=== PATIENT | female | born 1985 | race Caucasian/White ===

== ENCOUNTER 2018-06-28 05:30 | Inpatient (IN) | payer OTHER ==
--- NOTE | 2018-06-28 06:23 | HP ---
Admitting History and Physical - Admission Chief Complaint: iol History of Present Illness: 32 y/o at 41 weeks comes for IOL pt of hrhcatre gbs neg hiv neg rpr neg Limitations to Obtaining History: No Limitations - Past Medical History [employer]: No: Alzheimer's, CVA, Dementia, Migraine, Multiple Sclerosis, Peripheral Neuropathy, Parkinson's, Seizure, Syncope, TIA, Vertigo, Other Cardiovascular: No: AFIB, Aneurysm, Aortic Insufficiency, Aortic Stenosis, CAD, CHF, Deep Vein Thrombosis, HTN, Hyperlipdemia, MS, Mitral Insufficiency, Mitral Stenosis, Murmur, Pulmonary Hypertension, Other Pulmonary: No: Asthma, Bronchitis, Cancer, COPD, O2 Dependent, Pneumonia, Previously Intubated, Pulmonary Embolus, Pulmonary Fibrosis, Sleep Apnea, Other Gastrointestinal: No: Ascites, Cancer, Constipation, Crohn's Disease, Diverticulitis, Diverticulosis, Esophageal Varices, Gastritis, GERD, GI Bleed, Hemorrhoids, Hiatal Hernia, Inflamatory Bowel Disease, Irritable Bowel Disease, Pancreatitis, Peptic Ulcer Disease, Ulcerative Colitis, Other Hepatobiliary: No: Cirrhosis, Cholelithiasis, Cholecystitis, Choledocholithiasis , Hepatitis A, Hepatitis B, Hepatitis C, Other Renal/: No: Renal Failure, Renal Inusuff, BPH, Cancer, Hematuria, Hemodialysis , Neurogenic Bladder, Renal Calculi, UTI, Other Reproductive: No: Ectopic , Endometriosis, Fibroids, PID, Polycystic Ovary Syndrome, Postmenopausal, Other Infectious Disease: No: AIDS, C-Diff, Herpes Zoster, HIV, MRSA, STD's, Tuberculosis, VREF, Other Psych: No: Addictions, Anxiety, Bipolar, Depression, Panic, Psychosis, Schizophrenia, Other Musculoskeletal: No: Bursitis, Chronic low back pain, Hemiparesis, Hemiplegia, Osteoarthritis, Paraplegia, Other Rheumatology: No: Fibromyalgia, Gout, Lupus, Rheumatoid Arthritis, Sarcoidosis, Vasculitis, Other - Past Surgical History Past Surgical History: No: None, AAA Repair, AICD, Amputation, Appendectomy, Arthrosocopy, AV Fistula/Graft, Bariatric Surgery, Breast Biopsy, Bypass, CABG, Carotid Endarterectomy, Cataract Removal, Cholecystectomy, Colectomy, Colonoscopy, Colostomy, Craniotomy, , Cystectomy, Hernia Repair, Hysterectomy, Ileal Conduit, Ileosotomy, Joint Replacement, Kidney Transplant, Laminectomy, Liver Transplant, Mastectomy, Nephrectomy, Oopherectomy, Orchiectomy, Permanent Pacemaker, Prostatectomy, Splenectomy, Stent, Thoracotomy , TURP, Tonsillectomy, Tubal Ligation, Upper Endoscopy, Valve Replacement, Vasectomy, Vein Stripping/Ligation - Advance Directives Advance Directives: No: Living Will, Health Care Proxy, DNR, Organ Donor, Tissue Donor, MOLST Home Medications - Allergies Allergies/Adverse Reactions: Allergies Allergy/AdvReac Type Severity Reaction Status Date / Time No Known Allergies Allergy Verified 06/23/18 15:03 - Home Medications Home Medications: Ambulatory Orders Calcium 1 tab PO DAILY 06/23/18 Dha 1 tab PO DAILY 06/23/18 Vitamin Tablet 1 tab PO DAILY 06/23/18 Review of Systems - Review of Systems Constitutional: reports: No Symptoms Eyes: reports: No Symptoms HENT: reports: No Symptoms Neck: reports: No Symptoms Cardiovascular: reports: No Symptoms Respiratory: reports: No Symptoms Gastrointestinal: reports: No Symptoms Genitourinary: reports: No Symptoms Neurological: reports: No Symptoms Endocrine: reports: No Symptoms Hematology/Lymphatic: reports: No Symptoms Physical Examination Constitutional: Yes: Well Nourished Eyes: Yes: WNL HENT: Yes: WNL Neck: Yes: WNL Cardiovascular: Yes: WNL Respiratory: Yes: WNL Gastrointestinal: Yes: WNL ...Rectal Exam: Yes: WNL Musculoskeletal: Yes: WNL Extremities: Yes: WNL Integumentary: Yes: WNL (exam is FT, nst cat 1) Assessment/Plan as above prep for iol labs
[2018-06-28 06:52] LABS: BASO % 0.6 % (0-2.0); EOS % 0.9 % (0-4.5); HEMATOCRIT 30.9 % (32.4-45.2); LYMPH % 17.5 % (8-40); MCHC 32.3 g/dl (32.0-36.0); MEAN CELL VOLUME 64.9 fl (80-96); MEAN PLT VOLUME 9.6 fl (7.5-11.1); MONO % 6.2 % (3.8-10.2); NEUT % 74.8 % (42.8-82.8); PLATELET COUNT 221 K/MM3 (134-434); RBC 4.75 M/mm3 (3.60-5.2); RDW 15.1 % (11.6-15.6)
[2018-06-28 07:08] VITALS: BMI 35.1
[2018-06-28 07:15] LABS: CALCIUM 8.6 mg/dL (8.5-10.1); POTASSIUM 3.9 mmol/L (3.5-5.1)
[2018-06-28] MEDS: DEXTROSE 5%-LACTATED RINGERS 1,000 ML IV SCH (07:15)
[2018-06-28 07:18] LABS: INR 0.99 (0.83-1.09); PROTHROMBIN TIME (PATIENT) 11.7 SEC (9.7-13.0)
[2018-06-28 10:14] LABS: CREATININE 0.6 mg/dL (0.55-1.3)
--- NOTE | 2018-06-28 10:23 | LDN ---
Inpatient Induction of Labor - Patient Data Physician: Reén Stewart Para: 0 : 2 LMP: 09/19/17 Estimated date of delivery: 06/21/18 - presentation presentation: Vertex Estimated weight: 3,600 - Documentation Gestational age of 39 0/7 wks or older confirmed by either: Ultrasound measure at <20wks supports gestational age of 39 wks or > Known allergies identified: Allergies Allergy/AdvReac Type Severity Reaction Status Date / Time No Known Allergies Allergy Verified 06/23/18 15:03 Pertinent laboratory test results available: Yes - Consent Patient counseled re: risk, benefits, and alternatives: Yes (I personally counseled paytient regarding IOL, all questions answered) Consent form signed as required: Yes - Emanuel score Dilation (cm): Closed Position of Cervix: Posterior Effacement %: 0-30 Station *: -3 Cervical consistency: Firm Emanuel Score: 0 - Orders Orders received: Cervical Ripening (FHT is reactive and H&P confirmed as documented)
[2018-06-28 11:03] LABS: ANISOCYTOSIS 2+; MACROCYTOSIS 0; OVALOCYTE 1+; PLATELET ESTIMATE NORMAL; TEAR DROP CELLS 1+
[2018-06-28] MEDS ORDERED: BUTORPHANOL TARTRATE 2 MG/ML VIAL IVPB ONE ×2 (12:15→18:30)
[2018-06-28] MEDS ORDERED: PROMETHAZINE HCL 25 MG/1 ML VIAL IVPB ONE ×2 (12:15→18:30)
[2018-06-28] MEDS ORDERED: BUTORPHANOL TARTRATE 2 MG/ML VIAL ONE ×2 (12:16→18:11)
[2018-06-28] MEDS ORDERED: PROMETHAZINE HCL 25 MG/1 ML VIAL ONE ×2 (12:16→18:11)
[2018-06-28] MEDS ORDERED: DINOPROSTONE 10 MG VAGINAL SUPPOSITORY VG ONE (12:30)
--- NOTE | 2018-06-28 21:47 | PN ---
Progress Note, Labor Vaginal Exam #1 Labor Exam Date: 06/28/18 Labor Exam Time: 21:46 Heart Rate (range): Cat I Dilatation: 4 Effacement (%): 100 Presentation: Vertex/Position Station: -3 Remarks: Pt uncomfortable, requesting epidural Cervix stretched to 4cm Needs IV re-established, then epidural Cat I tracing Sandra on her own, will start pitocin if ctx space Anticipate Olimpia Linares MD
[2018-06-28] MEDS ORDERED: BUPIVACAINE HCL/PF 0.25% (2.5MG/ML) 10 ML VIAL ONE (21:52)
[2018-06-28] MEDS ORDERED: LIDO 2%/EPI 1:200000 PRESRVFRE (20 ML SDVIAL) ONE (21:52)
[2018-06-28] MEDS ORDERED: FENTANYL/BUPIVACAINE/NS/PF - PCEA - 50 ML DISP.SYRIN EP ONE (21:58)
[2018-06-28] MEDS ORDERED: ELECTROLYTE-148 SOLN 500 ML IV ONE (22:00)
[2018-06-28] MEDS: FENTANYL/BUPIVACAINE/NS/PF - PCEA - 50 ML DISP.SYRIN EP SCH (22:20)
[2018-06-28] MEDS ORDERED: NALOXONE HCL 0.4 MG/ML VIAL IVPUSH PRN (22:23)
[2018-06-28] MEDS: ELECTROLYTE-148 SOLN 1,000 ML IV SCH (23:00)
--- NOTE | 2018-06-28 23:35 | PN ---
Progress Note, Labor Vaginal Exam #2 Labor Exam Date: 06/28/18 Labor Exam Time: 23:34 Heart Rate (range): Cat I Dilatation: 4-5 Effacement (%): 100 Amniotic Membrane Status: Ruptured Presentation: Vertex/Position Station: -3 Remarks: Comfortable s/p epidural Cervix 4-5cm Continue current management SROM, clear If contractions space out, augment with pitocin Olimpia Linares MD
[2018-06-29] MEDS ORDERED: FENTANYL/BUPIVACAINE/NS/PF - PCEA - 50 ML DISP.SYRIN EP ONE ×6 (02:32→20:16)
[2018-06-29] MEDS: FENTANYL/BUPIVACAINE/NS/PF - PCEA - 50 ML DISP.SYRIN EP SCH ×2 (02:35→20:00)
--- NOTE | 2018-06-29 06:10 | PN ---
Progress Note, Labor Vaginal Exam #2 Labor Exam Date: 06/29/18 Labor Exam Time: 06:09 Heart Rate (range): Cat I Dilatation: 6 Effacement (%): 100 Amniotic Membrane Status: Ruptured Presentation: Vertex/Position Station: -3 Remarks: Pt feeling pressure Only 2cm exchange engineer last 6 hours Will reassess in 1-2 hours Olimpia Linares MD
--- NOTE | 2018-06-29 07:25 | PN ---
Progress Note, Labor Vaginal Exam #3 Labor Exam Date: 06/29/18 Labor Exam Time: 07:24 Heart Rate (range): Cat I Dilatation: 6 Effacement (%): 100 Presentation: Vertex/Position Station: -2 Remarks: No significant change, but head more applied Cat I tracing Consider pitocin next check if no change Olimpia Linares MD
[2018-06-29] MEDS ORDERED: OXYTOCIN 30 UNITS in 0.9% NS 30 UNIT/500 ML INFUS.BAG IVPB SCH (07:30)
--- NOTE | 2018-06-29 09:25 | PN ---
Progress Note, Labor Vaginal Exam #4 Labor Exam Date: 06/29/18 Labor Exam Time: 09:22 Heart Rate (range): Cat I Dilatation: 6 Effacement (%): 100 Amniotic Membrane Status: Ruptured Presentation: Vertex/Position Station: -1 Remarks: Still no change Started on pitocin Reviewed lack of slubber frame changer last 3-4 hours, discussed needing progress by next change Cat I tracing Olimpia Linares MD
[2018-06-29] MEDS: ELECTROLYTE-148 SOLN 1,000 ML IV SCH ×2 (09:49→20:30)
--- NOTE | 2018-06-29 10:38 | PN ---
Ante-Partal Exam - Subjective Vital Signs: Vital Signs Temperature 97.9 F 06/29/18 10:00 Pulse Rate 91 H 06/29/18 10:15 Respiratory Rate 20 06/29/18 10:15 Blood Pressure 121/86 06/29/18 10:15 O2 Sat by Pulse Oximetry (%) 97 06/29/18 10:15 Bleeding: No Headache: No Visual changes: No Right upper quadrant pain: No - Contractions Contractions: Yes Regularity: Regular Intensity: Mild/Mod Monitor Mode: External - Exam during Labor Heart Rate: 150 Variability: Moderate Category: I Monitor Accelerations: Present Monitor Decelerations: None Exam: Vaginal Dilatation (cm): 7 Effacement (%): 100 Amniotic Fluid: Clear Station: 0 - Assessment/Plan Assessment/Plan: continue care expectant management has epidural
[2018-06-29] MEDS ORDERED: LIDO 2%/EPI 1:200000 PRESRVFRE (20 ML SDVIAL) ONE (17:03)
[2018-06-29] MEDS ORDERED: AMPICILLIN SODIUM 2 GM VIAL ONE (19:15)
[2018-06-29] MEDS ORDERED: AMPICILLIN - 2 GM in SODIUM CHLORIDE 100 ML IVPB ONE (19:18)
[2018-06-29] MEDS ORDERED: OXYTOCIN 20 UNITS in 0.9% NS 20 UNIT/1,000 ML INFUS.BAG IV ONE (21:11)
[2018-06-29] MEDS ORDERED: LIDOCAINE HCL 1% PRESERVATIVE FREE - 30ML VIAL ONE (22:10)
[2018-06-29] MEDS ORDERED: BISACODYL 10 MG SUPP.RECT RC PRN (22:51)
[2018-06-29] MEDS ORDERED: BENZOCAINE 28 GM HEMORRHOIDAL OINTMENT TP PRN (22:51)
[2018-06-29] MEDS ORDERED: BENZOCAINE 20% 57 GM BOTTLE TP PRN (22:51)
[2018-06-29] MEDS ORDERED: METHYLERGONOVINE MALEATE 0.2 MG/1 ML AMP IM PRN (22:51)
[2018-06-29] MEDS ORDERED: WITCH HAZEL 50% (TUCKS) 40 PAD/JAR PAD TP PRN (22:51)
--- NOTE | 2018-06-29 22:55 | PN ---
Delivery - Delivery Vaginal Delivery: Spontaneous Type of Anesthesia: Epidural Episiotomy/Laceration: Midline EBL (cc): 300 Delivery, Single - Feeding Plan Initial Plan: Exclusive throughout hospitalization Remarks - Remarks Remarks: Normal spontaneous vaginal delivery of a live over midline episiotomy. Nose / Oropharynx suctioned @ perineum. Cord clamped and cut. Baby handed to nurse. Placenta expelled spontaneously intact. Mother in stable condition.
[2018-06-29] MEDS ORDERED: OXYTOCIN 20 UNITS in 0.9% NS 20 UNIT/1,000 ML INFUS.BAG IV SCH (23:00)
[2018-06-29] MEDS ORDERED: AMPICILLIN - 1 GM in SODIUM CHLORIDE 100 ML IVPB SCH (23:17)
[2018-06-29] MEDS ORDERED: ACETAMINOPHEN 325 MG TABLET (FP) ONE (23:17)
[2018-06-29] MEDS ORDERED: IBUPROFEN 600 MG TABLET (FP) PO ONE (23:17)
[2018-06-29] MEDS: IBUPROFEN 600 MG TABLET (FP) PO PRN (23:20)
[2018-06-29] MEDS: ACETAMINOPHEN 325 MG TABLET (FP) PO PRN (23:20)
[2018-06-30] MEDS: FENTANYL/BUPIVACAINE/NS/PF - PCEA - 50 ML DISP.SYRIN EP SCH (01:34)
[2018-06-30] MEDS: DEXTROSE 5%-LACTATED RINGERS 1,000 ML IV SCH (01:36)
[2018-06-30 07:25] LABS: BASO % 0.2 % (0-2.0); HEMATOCRIT 23.3 % (32.4-45.2); HEMOGLOBIN 7.5 GM/dL (10.7-15.3); LYMPH % 5.2 % (8-40); MCH 20.5 pg (25.7-33.7); MEAN CELL VOLUME 64.1 fl (80-96); MEAN PLT VOLUME 9.6 fl (7.5-11.1); NEUT % 89.6 % (42.8-82.8); PLATELET COUNT 174 K/MM3 (134-434); RBC 3.63 M/mm3 (3.60-5.2); RDW 14.9 % (11.6-15.6); WHITE BLOOD COUNT 22.5 K/mm3 (4.0-10.0)
[2018-06-30] MEDS: ACETAMINOPHEN 325 MG TABLET (FP) PO PRN ×3 (09:03→21:35)
[2018-06-30] MEDS: IBUPROFEN 600 MG TABLET (FP) PO PRN ×3 (09:03→21:35)
[2018-06-30] MEDS: PRENATAL VITAMINS W/ FOLIC ACID TABLET (FP) PO SCH (09:04)
[2018-06-30] MEDS: FERROUS SO4 325 MG TABLET (FP) PO SCH ×2 (09:04→21:13)
--- NOTE | 2018-06-30 10:13 | PN ---
Post Progress Note - Subjective Subjective: 32 yo Para 1 status post vaginal delivery, seen and evaluated. Doing well. Post Day: 1 Type of Delivery: Vital Signs: Vital Signs Temperature 98.4 F 06/30/18 05:00 Pulse Rate 77 06/30/18 05:00 Respiratory Rate 18 06/30/18 05:00 Blood Pressure 106/65 06/30/18 05:00 O2 Sat by Pulse Oximetry (%) 97 06/29/18 23:45 Breast Exam: Yes: Soft Uterus: Yes: Fundus Firm Abdomen/GI: Yes: Abdomen soft, Tolerating PO Lochia: Yes: Rubra Lochia, amount: Moderate Extremities: Yes: Calves non-tender Perineum: Yes: Episiotomy (Healing) Activity: Ambulating - Labs Labs: CBC WBC 22.5 K/mm3 (4.0-10.0) H 06/30/18 06:00 RBC 3.63 M/mm3 (3.60-5.2) 06/30/18 06:00 Hgb 7.5 GM/dL (10.7-15.3) L 06/30/18 06:00 Hct 23.3 % (32.4-45.2) L D 06/30/18 06:00 MCV 64.1 fl (80-96) L 06/30/18 06:00 MCH 20.5 pg (25.7-33.7) L 06/30/18 06:00 MCHC 32.0 g/dl (32.0-36.0) 06/30/18 06:00 RDW 14.9 % (11.6-15.6) 06/30/18 06:00 Plt Count 174 K/MM3 (134-434) D 06/30/18 06:00 MPV 9.6 fl (7.5-11.1) 06/30/18 06:00 Absolute Neuts (auto) 20.2 K/mm3 (1.5-8.0) H 06/30/18 06:00 Neutrophils % 89.6 % (42.8-82.8) H 06/30/18 06:00 Lymphocytes % 5.2 % (8-40) L D 06/30/18 06:00 Monocytes % 5.0 % (3.8-10.2) 06/30/18 06:00 Eosinophils % 0.0 % (0-4.5) D 06/30/18 06:00 Basophils % 0.2 % (0-2.0) 06/30/18 06:00 Nucleated RBC % 0 % (0-0) 06/30/18 06:00 Hypochromia 2+ 06/28/18 06:00 Platelet Estimate Normal 06/28/18 06:00 Polychromasia 0 06/28/18 06:00 Poikilocytosis 1+ 06/28/18 06:00 Anisocytosis 2+ 06/28/18 06:00 Microcytosis 2+ 06/28/18 06:00 Macrocytosis 0 06/28/18 06:00 Tear Drop Cells 1+ 06/28/18 06:00 Ovalocytes 1+ 06/28/18 06:00 Assessment/Plan Status post normal vaginal delivery Stable Continue routine care
[2018-06-30] MEDS ORDERED: SENNOSIDES/DOCUSATE COMBO (SENNA PLUS) TABLET (UD) PO PRN (22:00)
[2018-07-01] MEDS: ACETAMINOPHEN 325 MG TABLET (FP) PO PRN ×2 (05:53→11:48)
[2018-07-01] MEDS: IBUPROFEN 600 MG TABLET (FP) PO PRN ×2 (05:54→11:48)
--- NOTE | 2018-07-01 07:33 | DS ---
Physical Exam-[facility] Vital Signs: Vital Signs Temperature 97.9 F 07/01/18 06:00 Pulse Rate 72 07/01/18 06:00 Respiratory Rate 18 07/01/18 06:00 Blood Pressure 117/66 07/01/18 06:00 O2 Sat by Pulse Oximetry (%) 97 06/29/18 23:45 Constitutional: Yes: Well Nourished Eyes: Yes: Conjunctiva Clear HENT: Yes: Atraumatic Neck: Yes: Supple Cardiovascular: Yes: Regular Rate and Rhythm Respiratory: Yes: Regular Gastrointestinal: Yes: Normal Bowel Sounds External Genitalia: Yes: Normal Vaginal Exam: Yes: Normal Cervix: Yes: Normal ....Post : Yes: Uterus firm, Moderate lochia serosa Extremities: Yes: WNL Neurological: Yes: Alert, Oriented ...Motor Strength: WNL Psychiatric: Yes: Alert, Oriented Labs: CBC, BMP 06/30/18 06:00 06/28/18 06:00 Delivery - Delivery Vaginal Delivery: Spontaneous Type of Anesthesia: Local, Epidural Episiotomy/Laceration: Midline EBL (cc): 300 Delivery, Single - Stages of Labor Date 1st Stage Initiatied: 06/28/18 Time 1st Stage Initiated: 12:25 Date 2nd Stage Initiated: 06/29/18 Time 2nd Stage Initiated: 21:30 Date of Delivery: 06/29/18 Time of Delivery: 22:26 Time Placenta Delivered: 22:30 - Condition of Infant 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/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 Present: No Gender: Male Weight: 8 lb 13 oz Position: OA Total Hours ROM (Hrs/Mins): 24h 56m - 1 Minute Total Score: 8 5 Minutes Total Score: 9 - [place] Feeding Plan Initial Plan: Exclusive throughout hospitalization Discharge Summary Reason For Visit: LABOR ADMIT Current Active Problems Status post normal delivery (Acute) Procedures: Principal: Normal spontaneous vaginal delivery Hospital Course: Routine care Condition: Stable - Instructions Diet, Activity, Other Instructions: Regular Diet Referrals: Aundrea Linares MD [Staff Physician] - Disposition: HOME - Home Medications Comprehensive Discharge Medication List: Ambulatory Orders Calcium 1 tab PO DAILY 06/23/18 Dha 1 tab PO DAILY 06/23/18 Vitamin Tablet 1 tab PO DAILY 06/23/18 Ibuprofen 600 mg PO Q6H PRN #30 tablet 06/30/18
[2018-07-01] MEDS: PRENATAL VITAMINS W/ FOLIC ACID TABLET (FP) PO SCH (09:19)
[2018-07-01] MEDS: FERROUS SO4 325 MG TABLET (FP) PO SCH (09:19)
[2018-07-01 12:49] VITALS: BP 100/69; PULSE 78; TEMP 98
== END 2018-07-01 16:00 | disposition home or self-care (01) | DRG 560 ==
LOC: JLDR 05:30 → J3W 06-30 00:25
PROVIDERS: ADMIT Obstetrics & Gynecology; ATTEND Obstetrics & Gynecology
PROC: 3E0P7VZ Introduction of Hormone into Female Reproductive, Via Natural or Artificial Opening (ICD-10-PCS; 2018-06-28)
PROC: 0W8NXZZ Division of Female Perineum, External Approach (ICD-10-PCS; principal; 2018-06-29)
PROC: 10E0XZZ Delivery of Products of Conception, External Approach (ICD-10-PCS; 2018-06-29)
DX: O48.0 Post-term pregnancy (principal); Z3A.41 41 weeks gestation of pregnancy; Z37.0 Single live birth
CPT/HCPCS: 36415; 59409; 80048; 85025; 85610; 85730; 86593; 86850; 86900; 86901